=== PATIENT | female | born 1950 | race Caucasian/White ===

== ENCOUNTER 2016-11-18 07:55 | Outpatient (CLI) | payer OTHER | END 2016-11-18 21:08 | disposition home or self-care (01) | LOC: SMA 07:55 | DX: Z12.31 Encounter for screening mammogram for malignant neoplasm of breast (principal) | CPT/HCPCS: G0202 ==

== ENCOUNTER 2017-11-24 12:35 | Outpatient (CLI) | payer OTHER | END 2017-11-24 20:42 | disposition home or self-care (01) | LOC: SMA 12:35 | DX: Z12.31 Encounter for screening mammogram for malignant neoplasm of breast (principal) | CPT/HCPCS: 77067 ==

== ENCOUNTER 2018-11-26 08:37 | Outpatient (CLI) | payer OTHER | END 2018-11-26 20:51 | disposition home or self-care (01) | LOC: SMA 08:37 | DX: Z12.31 Encounter for screening mammogram for malignant neoplasm of breast (principal) | CPT/HCPCS: 77067 ==

== ENCOUNTER 2020-01-07 08:04 | Outpatient (CLI) | payer OTHER | END 2020-01-07 20:19 | disposition home or self-care (01) | LOC: SMA 08:04 | DX: Z12.31 Encounter for screening mammogram for malignant neoplasm of breast (principal) | CPT/HCPCS: 77067 ==

== ENCOUNTER 2021-01-07 08:43 | Outpatient (CLI) | payer OTHER | END 2021-01-07 19:50 | disposition home or self-care (01) | LOC: SMA 08:43 | DX: Z12.31 Encounter for screening mammogram for malignant neoplasm of breast (principal) | CPT/HCPCS: 77067 ==